=== PATIENT | male | born 1975 | race Caucasian/White ===

== ENCOUNTER 2024-04-24 15:35 | Emergency (ER) | payer BC ==
[~2024-04-24] VITALS: Ht 172.7 cm; Wt 98.4 kg
[2024-04-24] MEDS ORDERED: AMOX500C2 PO (17:15)
[2024-04-24] MEDS ORDERED: IBUP-1957 PO (17:15)
[2024-04-24 17:26] VITALS: BP 148/103; O2SAT 97
== END 2024-04-24 17:26 | disposition home or self-care (01) ==
LOC: ER 15:35
DX: K08.89 Other specified disorders of teeth and supporting structures (principal); F17.200 Nicotine dependence, unspecified, uncomplicated; Z79.899 Other long term (current) drug therapy
CPT/HCPCS: A4606; A4663